=== PATIENT | male | born 1940 | race Caucasian/White ===

== ENCOUNTER → 2017-12-06 | Outpatient (CLI) | payer MEDICARE, BC ==
[~2017-12-06] MED LIST: ALPR.25 PO; ASPI81CH PO; ATOR20 PO; AZELASTINE137 MCG/0.; BUPR100ER PO; BUPR150ER PO; CHLO25B PO; Cabergoline0.5 MG PO; EPIN.3I IM; FINA5 PO; FISH1000; FLONASE ALLERG9.9 ML; Flomax0.4 MG PO; GABA100 PO; HYDHCL25 PO; LOSA50 PO; METO25ER PO; Motion Sickness25 M2 PO; POTA20PAC PO; Prilosec Otc20 MG PO; SKIN TREATMENT225 GM TOP; TRAM50 PO; TRAZ50 PO; VALA500 PO; VALS80 PO; ZALE5 PO; ZOLP5 PO
== END | disposition home or self-care (01) ==
LOC: PLD 13:54 → LAB SHORT 13:54
DX: D22.39 Melanocytic nevi of other parts of face (principal); L57.8 Other skin changes due to chronic exposure to nonionizing radiation
CPT/HCPCS: 88305

== ENCOUNTER → 2019-08-15 | Outpatient (CLI) | payer MEDICARE, BC | END | disposition home or self-care (01) | LOC: LAB SHORT 09:20 → LAB 09:20 | DX: R30.9 Painful micturition, unspecified (principal) | CPT/HCPCS: 87086 ==

== ENCOUNTER → 2021-03-23 | Outpatient (CLI) | payer MEDICARE, BC | END | disposition home or self-care (01) | LOC: LAB SHORT 10:55 → LAB 10:55 | DX: C44.41 Basal cell carcinoma of skin of scalp and neck (principal) | CPT/HCPCS: 88305 ==

== ENCOUNTER → 2021-04-22 | Outpatient (CLI) | payer MEDICARE, BC | END | disposition home or self-care (01) | LOC: LAB SHORT 11:46 → LAB 11:46 | DX: C44.219 Basal cell carcinoma of skin of left ear and external auricular canal (principal) | CPT/HCPCS: 88305 ==

== ENCOUNTER 2021-09-11 11:58 | Day surgery (SDC) | payer MEDICARE, BC ==
[~2021-09-11] VITALS: Ht 182.9 cm; Wt 89.5 kg
[2021-09-11] MEDS ORDERED: LORA.5 (12:24)
[2021-09-11] MEDS ORDERED: BUPROPION HCL200 M2 (12:24)
[2021-09-11] MEDS ORDERED: IRBE75 (12:32)
== END 2021-09-11 15:26 | disposition home or self-care (01) ==
LOC: ORSCSDS 11:58
PROVIDERS: Internal Medicine Gastroenterology
PROC: 0DBH8ZX Excision of Cecum, Via Natural or Artificial Opening Endoscopic, Diagnostic (ICD-10-PCS; principal; 2021-09-11 13:00)
PROC: 0DBK8ZX Excision of Ascending Colon, Via Natural or Artificial Opening Endoscopic, Diagnostic (ICD-10-PCS; principal; 2021-09-11 13:00)
PROC: 0DB78ZX Excision of Stomach, Pylorus, Via Natural or Artificial Opening Endoscopic, Diagnostic (ICD-10-PCS; principal; 2021-09-11 13:00)
PROC: 0DBL8ZX Excision of Transverse Colon, Via Natural or Artificial Opening Endoscopic, Diagnostic (ICD-10-PCS; principal; 2021-09-11 13:00)
PROC: 0DB98ZX Excision of Duodenum, Via Natural or Artificial Opening Endoscopic, Diagnostic (ICD-10-PCS; principal; 2021-09-11 13:00)
PROC: 0DBP8ZX Excision of Rectum, Via Natural or Artificial Opening Endoscopic, Diagnostic (ICD-10-PCS; principal; 2021-09-11 13:00)
DX: R10.9 Unspecified abdominal pain (principal); K21.9 Gastro-esophageal reflux disease without esophagitis; D12.3 Benign neoplasm of transverse colon; D12.0 Benign neoplasm of cecum; D12.2 Benign neoplasm of ascending colon; D12.8 Benign neoplasm of rectum; K57.30 Diverticulosis of large intestine without perforation or abscess without bleeding; D50.9 Iron deficiency anemia, unspecified; Z86.010 Personal history of colon polyps; K64.8 Other hemorrhoids; I10 Essential (primary) hypertension; G47.33 Obstructive sleep apnea (adult) (pediatric); E78.5 Hyperlipidemia, unspecified; Z79.899 Other long term (current) drug therapy; Z87.891 Personal history of nicotine dependence
CPT/HCPCS: 88305; 88342; J0461; J2370; J2405; J2704; J7120

== ENCOUNTER 2022-10-15 11:50 | Day surgery (SDC) | payer MEDICARE, BC ==
[~2022-10-15] VITALS: Ht 182.9 cm; Wt 96.0 kg
[~2022-10-15 11:50] MED LIST changes: +BUPROPION HCL200 M2; +IRBE75; +LORA.5
--- NOTE | 2022-10-15 12:41 | NUR ---
10/15/22 1241 Mary Brown THREE ATTEMPTS AT IV. FIRST ATTEMPT AT IV BY MA IN RIGHT HAND INFILTRATED. SECOND ATTEMPT AT IV BY MA IN RIGHT FOREARM UNSUCCESSFUL. THIRD ATTEMPT AT IV BY RN IN RIGHT HAND SUCCESSFUL.
== END 2022-10-15 14:12 | disposition home or self-care (01) ==
LOC: ORSCSDS 11:50
PROVIDERS: Internal Medicine Gastroenterology
PROC: 0DBM8ZX Excision of Descending Colon, Via Natural or Artificial Opening Endoscopic, Diagnostic (ICD-10-PCS; principal; 2022-10-15 13:00)
PROC: 0DBK8ZX Excision of Ascending Colon, Via Natural or Artificial Opening Endoscopic, Diagnostic (ICD-10-PCS; principal; 2022-10-15 13:00)
PROC: 0DBL8ZX Excision of Transverse Colon, Via Natural or Artificial Opening Endoscopic, Diagnostic (ICD-10-PCS; principal; 2022-10-15 13:00)
DX: Z12.11 Encounter for screening for malignant neoplasm of colon (principal); Z86.010 Personal history of colon polyps; D12.2 Benign neoplasm of ascending colon; K57.30 Diverticulosis of large intestine without perforation or abscess without bleeding; K64.4 Residual hemorrhoidal skin tags; G47.33 Obstructive sleep apnea (adult) (pediatric); I10 Essential (primary) hypertension; Z87.891 Personal history of nicotine dependence; I25.10 Atherosclerotic heart disease of native coronary artery without angina pectoris; I12.9 Hypertensive chronic kidney disease with stage 1 through stage 4 chronic kidney disease, or unspecified chronic kidney disease; N18.2 Chronic kidney disease, stage 2 (mild); Z79.899 Other long term (current) drug therapy
CPT/HCPCS: 88305; J2704; J7120

== ENCOUNTER → 2024-03-14 | Outpatient (CLI) | payer MEDICARE, BC ==
[2024-03-15 14:08] LABS: Stool Occult Bld Immuno 1 Negative (NEGATIVE)
== END | disposition home or self-care (01) ==
LOC: LAB SHORT 15:15 → LAB 15:15 → LAB SHORT 03-15 09:59
PROVIDERS: Family Medicine
DX: D64.9 Anemia, unspecified (principal)
CPT/HCPCS: G0328

== ENCOUNTER 2025-09-16 07:28 | Day surgery (SDC) | payer MEDICARE, BC ==
[~2025-09-16] VITALS: Ht 182.9 cm; Wt 91.2 kg
[~2025-09-16 07:28] MED LIST changes: +FentaNYL Citrate 50 MCG/ML 2 ML Injection ONE; +Lidocaine 1%-Epineph 1:100000 20 ML MDV ONE; +Midazolam HCl 1MG / ML 2ML Vial ONE; +NS 500 ML IV ONE; +Sodium Bicarb 8.4% 1 MEQ/ML 50 ML Vial ONE
[2025-09-16] MEDS ORDERED: NS 500 ML IV ONE (07:45)
[2025-09-16] MEDS ORDERED: BELSOMRA10 MG PO (07:50)
[2025-09-16] MEDS ORDERED: Cabergoline0.5 MG PO (07:51)
[2025-09-16] MEDS ORDERED: HYDROCODONE-AC1 EA19 PO (07:52)
[2025-09-16] MEDS ORDERED: ROSUVASTATIN CAL5 MG PO (07:53)
[2025-09-16] MEDS ORDERED: TAMSULOSIN HCL0.4 M1 PO (07:53)
[2025-09-16] MEDS ORDERED: MODAFINIL100 M4 PO (07:53)
--- NOTE | 2025-09-16 08:08 | NUR ---
09/16/25 0808 Nancy Hernandez OKAY DESPITE KEFLEX ALLERGY PER VO TY
[2025-09-16] MEDS ORDERED: Lidocaine HCl 2% 10 ML SDA ONE (08:37)
[2025-09-16] MEDS ORDERED: CeFAZolin Sodium 2,000 MG VIAL ONE (08:38)
[2025-09-16 09:22] VITALS: BP 132/68
== END 2025-09-16 09:40 | disposition home or self-care (01) ==
LOC: ORSCSDS 07:28
PROVIDERS: Orthopaedic Surgery
PROC: 0PBT0ZZ Excision of Right Finger Phalanx, Open Approach (ICD-10-PCS; principal; 2025-09-16 09:00)
PROC: 0LB70ZZ Excision of Right Hand Tendon, Open Approach (ICD-10-PCS; principal; 2025-09-16 09:00)
DX: L72.0 Epidermal cyst (principal); N40.0 Benign prostatic hyperplasia without lower urinary tract symptoms; I12.9 Hypertensive chronic kidney disease with stage 1 through stage 4 chronic kidney disease, or unspecified chronic kidney disease; N18.9 Chronic kidney disease, unspecified; E78.5 Hyperlipidemia, unspecified; I25.10 Atherosclerotic heart disease of native coronary artery without angina pectoris; G47.33 Obstructive sleep apnea (adult) (pediatric); G25.81 Restless legs syndrome; Z87.891 Personal history of nicotine dependence; Z79.899 Other long term (current) drug therapy
CPT/HCPCS: 88304; J0690; J2003; J2250; J2704; J3010; J7040